=== PATIENT | male | born 1965 | race Hispanic/Latino ===

== ENCOUNTER 2017-08-01 12:31 | Emergency (ER) | payer OTHER ==
[2017-08-01 13:33] LABS: BASO # 0.05 K/mm3 (0.0-2.0); BASO % 0.5 % (0.0-3.0); EOS # 0.3 (0.0-0.7); EOS % 3.4 % (1.5-5.0); GRAN # 6.21 (1.4-6.5); GRAN % 61.2 % (50.0-68.0); HEMATOCRIT 36.8 % (42.0-52.0); LYMPH # 2.9 (1.2-3.4); LYMPH % 28.3 % (22.0-35.0); MEAN CELL VOLUME 82.9 fl (80.0-105.0); MEAN CORPUSCULAR HEMOGLOBIN 26.6 pg (25.0-35.0); MEAN CORPUSCULAR HGB CONC 32.1 g/dl (31.0-37.0); MEAN PLATELET VOLUME 10.6 fl (7.0-11.0); MONO # 0.7 (0.1-0.6); MONO % 6.6 % (1.0-6.0); RED CELL DISTRIBUTION WIDTH 13.5 % (11.5-14.5); WHITE BLOOD COUNT 10.1 10^3/ul (4.5-11.0)
[2017-08-01 13:40] LABS: ALB/GLOB RATIO 1.3 (1.1-1.8); ALKALINE PHOSPHATASE 81 U/L (38-126); ALT/SGPT 24 U/L (7-56); AST/SGOT 26 U/L (17-59); BILIRUBIN,TOTAL 0.5 mg/dL (0.2-1.3); BLOOD UREA NITROGEN 17 mg/dL (7-21); CARBON DIOXIDE 30 mmol/L (21-33); CHLORIDE 101 mmol/L (98-107); GFR AFRICAN-AMERICAN > 60; GLUCOSE,RANDOM 97 mg/dL (70-110); POTASSIUM 4.4 mmol/L (3.6-5.0); SODIUM 141 mmol/L (132-148); TOTAL PROTEIN 8.1 g/dL (5.8-8.3)
--- NOTE | 2017-08-01 13:56 | RAD ---
HISTORY: PES COMPARISON: No prior. FINDINGS: LUNGS: No active pulmonary disease. PLEURA: No significant pleural effusion identified, no pneumothorax apparent. CARDIOVASCULAR: Normal. OSSEOUS STRUCTURES: No significant abnormalities. VISUALIZED UPPER ABDOMEN: Normal. OTHER FINDINGS: None. IMPRESSION: No active disease.
[2017-08-01 14:55] VITALS: TEMP 97.8
[2017-08-01 14:56] LABS: URINE BILIRUBIN NEGATIVE (NEGATIVE); URINE BLOOD NEGATIVE (NEGATIVE); URINE GLUCOSE (UA) NEGATIVE (NEGATIVE); URINE KETONE 15 mg/dL (NEGATIVE); URINE LEUKOCYTE ESTERASE NEGATIVE Leu/uL (NEGATIVE); URINE PROTEIN 30 mg/dL (<30 mg/dL)
[2017-08-01 15:01] LABS: URINE APPEARANCE CLEAR (CLEAR); URINE COLOR YELLOW (YELLOW)
[2017-08-01 15:06] LABS: URINE WBC 0 - 2 /hpf (0-6)
[2017-08-01 15:08] LABS: URINE EPITHELIAL CELLS 0 - 2 /hpf (0-5)
[2017-08-01 15:09] LABS: URINE BACTERIA OCC (NEG)
--- NOTE | 2017-08-01 15:33 | ED PDOC ---
Arrival/HPI - General Chief Complaint: Psychiatric Evaluation Time Seen by Provider: 08/01/17 12:43 Historian: Patient - History of Present Illness Narrative History of Present Illness (Text): 08/01/17 15:17 51-year-old male with a history of bipolar disorder presents today sent in by the [facility] for change in behavior. Pt denies cp or sob. denies headache dizziness or weakness. no abdominal pain. no n/v/d/c. pt denies SI or HI. pt states he has hx of bipolar disorder. states he takes his medications and over the years his symptoms have improved. Time/Duration: Prior to Arrival Past Medical History - Provider Review Nursing Documentation Reviewed: Yes - Travel History Have you recently traveled outside [place] w/in the past 3 mons?: No - Infectious Disease Hx of Infectious Diseases: None - Cardiac Hx Hypertension: Yes - Pulmonary Hx Chronic Obstructive Pulmonary Disease (COPD): Yes - Neurological Hx Neurological Disorder: No - HEENT Hx HEENT Disorder: No - Renal Hx Renal Disorder: No - Endocrine/Metabolic Hx Endocrine Disorders: No - Hematological/Oncological Hx Blood Disorders: No - Musculoskeletal/Rheumatological Hx Musculoskeletal Disorders: No - Gastrointestinal Hx Gastrointestinal Disorders: No - Psychiatric Hx Bipolar Disorder: Yes Hx Depression: Yes Hx Hallucinations: Yes (Auditory, visual) Hx Substance Use: No Family/Social History - Physician Review Nursing Documentation Reviewed: Yes Family/Social History: Unknown Family HX Smoking Status: Never Smoked Hx Alcohol Use: No Hx Substance Use: No Allergies/Home Meds Allergies/Adverse Reactions: Allergies No Known Allergies Allergy (Verified 08/01/17 12:47) Home Medications: Home Meds Medication Instructions Recorded Confirmed ALPRAZolam [Xanax] 1 mg PO TID 08/01/17 08/01/17 Bupropion HCl [Wellbutrin Sr] 100 mg PO TID 08/01/17 08/01/17 Escitalopram [Lexapro] 10 mg PO BID 08/01/17 08/01/17 Methadone 56 mg PO DAILY 08/01/17 08/01/17 Mirtazapine [Remeron] 15 mg PO HS 08/01/17 08/01/17 Ziprasidone [Geodon] 40 mg PO BID 08/01/17 08/01/17 Zolpidem [Ambien] 5 mg PO HS 08/01/17 08/01/17 Review of Systems - Review of Systems Constitutional: absent: Fatigue, Fevers Respiratory: absent: SOB, Cough Cardiovascular: absent: Chest Pain, Palpitations Gastrointestinal: absent: Abdominal Pain, Nausea, Vomiting Genitourinary Male: absent: Dysuria Musculoskeletal: absent: Arthralgias Skin: absent: Rash, Pruritis Neurological: absent: Headache, Dizziness Psychiatric: absent: Anxiety, Depression, Suicidal Ideation Physical Exam Vital Signs Reviewed: Yes Vital Signs Temp Pulse Resp BP Pulse Ox 08/01/17 16:10 77 20 145/88 98 08/01/17 14:51 97.8 F 105 H 18 135/91 H 91 L Temperature: Afebrile Blood Pressure: Hypertensive Pulse: Tachycardic Respiratory Rate: Normal Appearance: Positive for: Well-Appearing, Non-Toxic, Comfortable Pain Distress: None Mental Status: Positive for: Alert and Oriented X 3 - Systems Exam Head: Present: Atraumatic Mouth: Present: Moist Mucous Membranes Neck: Present: Normal Range of Motion Respiratory/Chest: Present: Clear to Auscultation, Good Air Exchange. No: Respiratory Distress, Accessory Muscle Use Cardiovascular: Present: Regular Rate and Rhythm, Normal S1, S2. No: Murmurs Abdomen: No: Tenderness, Distention, Rebound, Guarding Back: Present: Normal Inspection Upper Extremity: Present: Normal ROM Lower Extremity: Present: Normal ROM Neurological: Present: GCS=15 Skin: Present: Warm, Dry, Normal Color. No: Rashes Psychiatric: Present: Alert, Oriented x 3 Medical Decision Making ED Course and Treatment: 08/01/17 16:11 Patient is nontoxic well-appearing in no distress vital signs are stable. pt admits to taking an extra xanax this morning since he was unable to sleep CBC WNL CMP WNL Tylenol WNL Salicylate WNL Alcohol level WNL Urine drug screen positive methadone, benzos UA; wnl cxr: wnl ekg normal sinus rhythm at 75 bpm normal axis normal intervals no ST elevations pt is medically cleared for PES evaluation Patient was seen and evaluated by PES screener: kasi Patient cleared psychiatrically for discharge Impression; substance use Followup with behavioral health center return if symptoms worsen,persist or if new symptoms develop. - Lab Interpretations Lab Results: 08/01/17 13:20 08/01/17 13:20 Lab Results 08/01/17 15:25: Urine Opiates Screen Negative, Urine Methadone Screen Positive H , Ur Barbiturates Screen Negative, Ur Phencyclidine Scrn Negative, Ur Amphetamines Screen Negative, U Benzodiazepines Scrn Positive H, U Oth Cocaine Metabols Negative, U Cannabinoids Screen Negative 08/01/17 13:20: Alcohol, Quantitative < 10 08/01/17 13:20: Salicylates < 1 L, Acetaminophen < 10.0 L 08/01/17 13:20: Sodium 141, Potassium 4.4, Chloride 101, Carbon Dioxide 30, Anion Gap 15, BUN 17, Creatinine 1.4, Est GFR ( Amer) > 60, Est GFR (Non- Af Amer) 53, Random Glucose 97, Calcium 10.0, Total Bilirubin 0.5, AST 26, ALT 24, Alkaline Phosphatase 81, Total Protein 8.1, Albumin 4.6, Globulin 3.5, Albumin/Globulin Ratio 1.3 08/01/17 13:20: WBC 10.1, RBC 4.44, Hgb 11.8 L, Hct 36.8 L, MCV 82.9, MCH 26.6, MCHC 32.1, RDW 13.5, Plt Count 244, MPV 10.6, Gran % 61.2, Lymph % (Auto) 28.3, [place] % (Auto) 6.6 H, Eos % (Auto) 3.4, Baso % (Auto) 0.5, Gran # 6.21, Lymph # 2.9, [place] # 0.7 H, Eos # 0.3, Baso # 0.05 08/01/17 13:00: Urine Color Yellow, Urine Appearance Clear, Urine pH 6.0, Ur Specific [place] >= 1.030, Urine Protein 30 H, Urine Glucose (UA) Negative, Urine Ketones 15 H, Urine Blood Negative, Urine Nitrate Negative, Urine Bilirubin Negative, Urine Urobilinogen 1.0 H, Ur Leukocyte Esterase Negative, Urine RBC 1 - 3, Urine WBC 0 - 2, Ur Epithelial Cells 0 - 2, Urine Bacteria Occ - RAD Interpretation Radiology Orders: 08/01/17 12:44 CHEST PORTABLE [RAD] Stat Disposition/Present on Arrival - Present on Arrival Any Indicators Present on Arrival: No History of DVT/PE: No History of Uncontrolled Diabetes: No Urinary Catheter: No History of Decub. Ulcer: No History Surgical Site Infection Following: None - Disposition Have Diagnosis and Disposition been Completed?: Yes Diagnosis: Substance use disorder Disposition: HOME/ ROUTINE Disposition Time: 16:13 Patient Plan: Discharge Patient Problems: Current Active Problems Problem Status Onset Substance use disorder Acute Condition: GOOD Additional Instructions: Followup with behavioral health center return if symptoms worsen,persist or if new symptoms develop. Follow up with the primary care physician within the next 2 days. Referrals: Tirso Murray MD [Primary Care Provider] - Follow up with primary Forms: [email or web address] (formerly [employer]) (Welsh)
[2017-08-01 16:24] VITALS: BP 145/88; PULSE 77; RESP 20; O2SAT 98
--- NOTE | 2017-08-01 18:56 | CARD ---
APPROVED REPORT EKG Measurement Heart [id number] <Conclusion> Normal sinus rhythm Possible Left atrial enlargement Septal infarct, age undetermined Abnormal ECG
== END 2017-08-01 16:23 | disposition home or self-care (01) ==
LOC: ED 12:31
DX: F19.10 Other psychoactive substance abuse, uncomplicated (principal); I10 Essential (primary) hypertension